=== PATIENT | male | born 1995 | race Caucasian/White ===

== ENCOUNTER 2020-03-06 16:40 | Emergency (ER) | payer SELFPAY ==
--- NOTE | ~2020-03-06 | XR_ITS ---
EXAMINATION: XR chest 1V portable INDICATION: Generalized chest pain TECHNIQUE: Portable AP chest at 1711 hours COMPARISON: None available FINDINGS: There are minimal airspace opacities of the lung bases. No pleural effusion or pneumothorax is identified. The heart size is upper limits of normal for technique. The visualized osseous struct ures are unremarkable. IMPRESSION: 1. Minimal bibasilar airspace opacity, consistent with atelectasis versus pneumonia. Reviewed, dictated and finalized at location A. IMPRESSION: 1. Minimal bibasilar airspace opacity, consistent with atelectasis versus pneum onia.
--- NOTE | 2020-03-06 16:50 | ECG_ITS ---
Measurements Intervals [place] Rate: 77 P: 14 IN: 142 QRS: 25 QRSD: 118 T: 28 QT: 390 QTc: 443 Interpretive Statements SINUS RHYTHM WITH SINUS ARRHYTHMIA INTRAVENTRICULAR CONDUCTION DELAY BORDERLINE ECG Electronically Signed On 03-12-2020 7:09:06 CDT by Artis Khanna D.O.
[2020-03-06 16:51] VITALS: BP 149/85; PULSE 68; RESP 18; TEMP 36.5; O2SAT 97
--- NOTE | 2020-03-06 17:00 | ED.SYNCOPE ---
HPI - Syncope General Chief Complaint: Chest Pain <Eagle Leslie PA-C - Last Filed: 03/06/20 19:24> Stated Complaint: CP, Syncope <Eagle Leslie PA-C - Last Filed: 03/06/20 19:24> Time Seen by Provider: 03/06/20 16:43 <Eagle Leslie PA-C - Last Filed: 03/06/20 19:24> Source: patient and family <Eagle Leslie PA-C - Last Filed: 03/06/20 19:24> Mode of arrival: ambulatory <Eagle Leslie PA-C - Last Filed: 03/06/20 19:24> Limitations: no limitations <Eagle Leslie PA-C - Last Filed: 03/06/20 19:24> History of Present Illness HPI narrative: Patient is a 24-year-old male who presents to emergency department for evaluation of having had a syncopal episode yesterday patient notes he was standing in front of a grill that was roughly 400+ degrees when he sustained a brief syncopal episode patient notes on arrival to emergency department he has some mild discomfort in the mid chest is an aching pain that radiates to the back and notes 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 Pain is worse with deep breathing activity and movement patient denies other complaints recent illness head injury. Patient has not taken anything for his symptoms on arrival to emergency department patient resting comfortably in the room in no distress <Eagle Leslie PA-C - Last Filed: 03/06/20 19:24> Review of Systems Review of Systems: All systems reviewed & are unremarkable except as noted in HPI and below <Eagle Leslie PA-C - Last Filed: 03/06/20 19:24> [facility], [facility] Past Medical History Medical History: Medical History (Updated 03/06/20 @ 19:19 by Eagle Leslie PA-C) Obesity <Eagle Leslie PA-C - Last Filed: 03/06/20 19:24> Social History Social History: Social History Gender identity (if verbalized by the patient): Male <ANASTACIO Degroot Last Filed: 03/06/20 19:24> Exam Narrative: Exam Narrative: GENERAL: Well-appearing, obese, and in no acute distress. HEAD: Normocephalic, atraumatic. EYES: PERRLA and EOMI. ENT: Nares clear, no rhinorrhea or epistaxis. Mucous membranes moist. Oropharynx without tonsillar hypertrophy exudate or other lesions. NECK: Supple. No adenopathy or masses. CHEST: Clear to auscultation. No respiratory distress. No wheezes rales or rhonchi. Reproducible mid chest wall tenderness to palpation HEART: Regular rate and rhythm. No murmur heard. Normal peripheral pulses. ABDOMEN: Soft, nontender, distended EXTREMITIES: Normal range of motion. No edema. SKIN: Warm, dry, no rash. NEURO: No focal deficits. Alert and oriented x3. Cranial nerves II through XII grossly intact. Normal speech and gait PSYCH: Normal mood and affect. <ANASTACIO Degroot Last Filed: 03/06/20 19:24> Course Course Emergency Course: Patient in the room in no distress resting comfortably aware of case findings treatment plan and diagnosis agreeing to follow-up as directed or to return if symptoms worsen or concerns <Eagle Leslie PA-C - Last Filed: 03/06/20 19:24> Vital Signs Vital signs: Vital Signs Temperature 97.7 F 03/06/20 16:51 Pulse Rate 68 03/06/20 16:51 Respiratory Rate 18 03/06/20 16:51 Blood Pressure 149/85 H 03/06/20 16:51 Pulse Oximetry 97 03/06/20 16:51 Temperature 97.7 F 03/06/20 16:51 Pulse Rate 76 03/06/20 19:56 Respiratory Rate 18 03/06/20 19:56 Blood Pressure 138/80 03/06/20 19:56 Pulse Oximetry 99 03/06/20 19:56 <ANASTACIO Degroot Last Filed: 03/06/20 19:24> Vital Signs Temperature 97.7 F 03/06/20 16:51 Pulse Rate 68 03/06/20 16:51 Respiratory Rate 18 03/06/20 16:51 Blood Pressure 149/85 H 03/06/20 16:51 Pulse Oximetry 97 03/06/20 16:51 Temperature 97.7 F 03/06/20 16:51 Pulse Rate 76 03/06/20 19:56 Respiratory Rate 18 03/06/20 19:56 Blood Pr
[2020-03-06 17:07] LABS: Basophils Percent Auto 0.5 % (0.2-1.2); Eosinophils Absolute Auto 0.1 K/mm3 (0-0.3); Eosinophils Percent Auto 1.5 % (0-4.4); Hematocrit 47.9 % (42.0-52.0); Hemoglobin 16.2 g/dL (14.0-18.0); Immature Granulocyte Absolute 0.02 K/mm3 (0.00-0.031); Immature Granulocyte Percent A 0.2 % (0-0.5); Lymphocytes Absolute Auto 2.35 K/mm3 (0.9-3.2); Lymphocytes Percent Auto 26.9 % (18.3-44.2); Mean Corpuscular HGB Conc 33.8 g/dl (32-36); Mean Corpuscular Hemoglobin 29.7 pg (26-34); Mean Corpuscular Volume 87.9 fl (80-100); Mean Platelet Volume 10.2 fl (7.4-10.4); Monocytes Absolute Auto 0.5 K/mm3 (0.1-0.6); Monocytes Percent Auto 5.2 % (2.6-8.5); Neutrophils Absolute Auto 5.7 K/mm3 (1.3-6.7); Neutrophils Percent Auto 65.7 % (45.5-73.1); Platelet Count Result 252 k/mm3 (150-375); Red Blood Count 5.45 M/mm3 (4.6-6.20); Red Cell Distribution Width 12.6 % (11.5-14.5); White Blood Count 8.7 K/mm3 (4.5-10.0)
[2020-03-06 17:18] LABS: Alanine Aminotransferase 45 U/L (4-50); Albumin Level 4.6 g/dL (3.5-5.1); Alkaline Phosphatase 70 U/L (38-126); Aspartate Amino Transferase 42 U/L (17-59); Bilirubin,Total 0.5 mg/dL (0.2-1.3); Blood Urea Nitrogen 5 mg/dL (9-20); Calcium 9.4 mg/dL (8.4-10.2); Carbon Dioxide 25 mmol/L (22-30); Chloride 104 mmol/L (98-107); Estimated CRCL calculation 161 ml/min; Estimated Glomerular Filt Rate > 60; Glucose 132 mg/dL (75-110); Potassium 3.8 mmol/L (3.4-5.0); Sodium 138 mmol/L (137-145)
[2020-03-06 17:20] LABS: INR 0.9
[2020-03-06 17:21] LABS: Partial Thromboplastin Time 28.6 SECONDS (22.3-36.8)
[2020-03-06 17:30] LABS: Troponin I < 0.012 ng/mL (0.000-0.034)
[2020-03-06 17:54] VITALS: BP 136/83; PULSE 67; RESP 18; O2SAT 98
[2020-03-06 18:08] LABS: NT Pro B Type Natriuretic Pept 37 PG/ML (5-100)
[2020-03-06 19:56] VITALS: BP 138/80; PULSE 76; RESP 18; O2SAT 99
== END 2020-03-06 19:56 | disposition home or self-care (01) ==
PROVIDERS: Emergency Medicine Emergency Medical Services; Emergency Provider Emergency Medicine
DX: R55 Syncope and collapse (principal); E66.9 Obesity, unspecified; Z68.38 Body mass index [BMI] 38.0-38.9, adult
CPT/HCPCS: 36415; 71045; 80053; 83880; 84484; 85025; 85610; 85730; 93005; 99284